=== PATIENT | female | born 1980 | race Caucasian/White ===

== ENCOUNTER 2022-05-27 18:34 | Emergency (ER) | payer OTHER ==
[~2022-05-27] VITALS: Ht 162.6 cm; Wt 81.2 kg
[2022-05-27 18:36] VITALS: BP 120/75
--- NOTE | 2022-05-27 19:36 | NUR ---
pt ambulated to bed #7
--- NOTE | 2022-05-27 19:57 | NUR ---
42YR OLD FEMALE BIB SELF . C/O ABD PAIN N/V X1WEEK. PT IS A&OX4 . STATES LAST VOMITING EPSIODE WAS YESTERDAY. 5/10 PAIN LEVEL MID ABD AREA FEELS "UPSET " ACHY. DENIES FEVER DIARRHEA CP OR SOB. RESP EVEN AND UNLABORED. PT IN GOWN IN BED WITH SIDE RAILS UP X1 BED AT LOWEST POSITION. NKDA NO MED HX
[2022-05-27 20:10] LABS: BASOPHILS % (AUTO) 0.7 % (0.0-2.0); EOSINOPHILS # (AUTO) 0.1 K/uL (0-0.4); EOSINOPHILS % (AUTO) 1.3 % (0.0-4.0); HEMATOCRIT 40.9 % (36-48); HEMOGLOBIN 13.7 g/dL (12.0-16.0); LYMPHOCYTES # (AUTO) 2.2 K/uL (2.5-16.5); LYMPHOCYTES % (AUTO) 35.3 % (20.5-51.1); MEAN CORPUSCULAR HEMOGLOBIN 31 pg (27-31); MEAN CORPUSCULAR HGB CONC 34 g/dL (33-37); MEAN CORPUSCULAR VOLUME 92.3 fL (80-94); MONOCYTES # (AUTO) 0.5 K/uL (0.8-1.0); MONOCYTES % (AUTO) 8.1 % (1.7-9.3); NEUTROPHILS # (AUTO) 3.4 K/uL (1.8-7.7); NEUTROPHILS % (AUTO) 54.6 % (42.2-75.2); PLATELET COUNT (AUTO) 284 K/uL (140-450); RED BLOOD CELL COUNT(AUTO) 4.43 MIL/uL (4.20-5.40); RED CELL DISTRIBUTION WIDTH 13.3 % (11.6-13.7); WHITE BLOOD COUNT (AUTO) 6.2 K/uL (4.8-10.8)
[2022-05-27 20:29] LABS: ALBUMIN 3.5 g/dL (3.4-5.0); ANION GAP 10.3 (8-16); CARBON DIOXIDE 28.6 mmol/L (21-32); CREATININE 0.8 mg/dL (0.6-1.3); POTASSIUM 3.9 mmol/L (3.5-5.1); TOTAL BILIRUBIN 0.3 mg/dL (0.0-1.0)
[2022-05-27 21:44] LABS: APPEARANCE,URINE CLEAR (CLEAR); BILIRUBIN,URINE NEGATIVE (NEGATIVE); BLOOD, URINE 1+ (NEGATIVE); COLOR,URINE YELLOW (YELLOW); LEUKOCYTE ESTERASE ,URINE NEGATIVE (NEGATIVE); NITRITE, URINE NEGATIVE (NEGATIVE); PH,URINE 6.5 (5.0-9.0); UGLUCOSE NEGATIVE (NEGATIVE)
--- NOTE | 2022-05-27 22:36 | NUR ---
Patient being evaluated by physician at bedside.
--- NOTE | 2022-05-27 22:40 | NUR ---
PT PROVIDED WITH DISCHARGE INSTRUCTIONS BY DR. OCHOA.
[2022-05-27 22:41] VITALS: BP 119/64
--- NOTE | 2022-05-27 22:43 | NUR ---
The patient's care was reviewed and supervised by Hailee Castro RN.
== END 2022-05-27 22:40 | disposition home or self-care (01) ==
LOC: MED 18:34
DX: B34.9 Viral infection, unspecified (principal)
CPT/HCPCS: 36415; 80053; 81001; 85025; 99283